=== PATIENT | female | born 1930 | race Hispanic/Latino ===

== ENCOUNTER 2017-01-03 18:35 | Emergency (ER) | payer MEDICARE, BC ==
[2016-08-03 12:17] VITALS: BMI 22.6
--- NOTE | 2017-01-04 11:15 | RAD ---
PROCEDURE: Left Hand Radiographs. HISTORY: Trauma COMPARISON: None. FINDINGS: BONES: There is diffuse bone demineralization. There is no acute displaced fracture or bone destruction in the hand. There is an acute nondisplaced fracture in the styloid process of the radius. JOINTS: There is moderate degenerative osteoarthrosis in the third and 4th PIP joints. There is mild degenerative osteoarthrosis in the 1st PENITENTIARY joint. SOFT TISSUES: Normal. OTHER FINDINGS: None. IMPRESSION: Acute nondisplaced fracture in the styloid process of the radius. No dislocation. We
--- NOTE | 2017-01-04 11:34 | RAD ---
PROCEDURE: Left Wrist Radiographs. HISTORY: Trauma COMPARISON: None. FINDINGS: BONES: There is an acute nondisplaced intra-articular fracture in the distal radius. There is diffuse bone demineralization. Bone alignment is normal. JOINTS: The proximal and distal carpal rows are maintained. SOFT TISSUES: There is soft tissue swelling at the wrist joint. OTHER FINDINGS: None. IMPRESSION: Acute nondisplaced intra-articular fracture in the distal radius and mild soft tissue swelling at the wrist joint. No dislocation.
== END 2017-01-04 00:41 | disposition home or self-care (01) ==
LOC: C.ER 18:35
DX: S52.572A Other intraarticular fracture of lower end of left radius, initial encounter for closed fracture (principal); X58.XXXA Exposure to other specified factors, initial encounter

== ENCOUNTER 2017-06-04 00:27 | Inpatient (IN) | payer MEDICARE, BC ==
[2017-06-04 00:27] VITALS: BMI 22.6
--- NOTE | 2017-06-04 00:35 | C.PDOC ---
History Of Present Illness Patient is an 87 y/o female, with a Hx of dementia, who presents to the ED by ambulance from the retirement complaining of aggressive behavior. care home reported patient was screaming, yelling, punching, and throwing undergarments to staff. No physical complaints at this time. Time Seen by Provider: 06/04/17 00:34 History Per: Other (retirement) Onset/Duration Of Symptoms: Hrs (behavior began tonight) Current Symptoms Are (Timing): Still Present Recent travel outside of the [place]: No Past Medical History Reviewed: Historical Data, Nursing Documentation, Vital Signs - Medical History PMH: Anemia, Anxiety, Arthritis (back and neck), Atrial Fibrillation, Colonic Polyps, Dementia, Diverticulitis, Gastritis, Gastrointestinal Ulcer, HTN, Hypercholesterolemia, Malignancy (tyroid/lung), Rheumatoid Arthritis Denies: Diabetes, Hepatitis, HIV, Chronic Kidney Disease, Seizures, Sexually Transmitted Disease Surgical History: Cholecystectomy, Endoscopy, Pacemaker - [facility] Procedures APPLICATION OF SPLINT (01/31/14) GROUP PSYCHOTHERAPY (03/07/16) INDIVIDUAL PSYCHOTHERAPY, COGNITIVE-BEHAVIORAL (03/07/16) Family History: States: No Known Family Hx - Social History Hx Tobacco Use: No Hx Alcohol Use: No Hx Substance Use: No - Immunization History Hx Tetanus Toxoid Vaccination: Yes Hx Influenza Vaccination: Yes Hx Pneumococcal Vaccination: Yes Review Of Systems Review Of Systems: ROS cannot be obtained secondary to pt's inabilty to answer questions. Physical Exam - Physical Exam Appears: Combative, Agitated, Confused Skin: Warm Head: Normacephalic Oral Mucosa: Moist (pt spitting) Chest: Symmetrical, Other (pacer right) Cardiovascular: Rhythm Regular, No Murmur Respiratory: Normal Breath Sounds, No Rales, No Rhonchi, No Wheezing Extremity: Normal ROM Extremity: Bilateral: Atraumatic Neurological/Psych: Other ([id number]) Gait: Unable To Assess Additional Physical Exam Comments: limited exam due to patient's continuous movement of extremities. ED Course And Treatment - Laboratory Results Result Diagrams: 06/04/17 01:44 06/04/17 01:44 ECG: Interpreted By Me, Viewed By Me ECG Rhythm: Sinus Rhythm (88), 1st Degree HB, Nonspecific Changes Pulse Ox Interpretation: Normal - Radiology CXR: Interpreted by Me, Viewed By Me CXR Interpretation: Yes: Cardiomegaly, Other (pacer on right). No: Infiltrates , Fracture Medical Decision Making Medical Decision Making: Plan: * EKG * CXR * blood work * UA Disposition Discussed With Dr.: Jesus Thurston Comment: accepted the pt on his service and took over the care at 3 AM Doctor Will See Patient In The: Hospital Counseled Patient/Family Regarding: Studies Performed, Diagnosis - Disposition Disposition: HOSPITALIZED Disposition Time: 00:35 Condition: FAIR - POA Present On Arrival: None - Clinical Impression Clinical Impression: Dementia, Agitation - Scribe Statement The provider has reviewed the documentation as recorded by the Scribe Melissa Medrano All medical record entries made by the Scribe were at my direction and personally dictated by me. I have reviewed the chart and agree that the record accurately reflects my personal performance of the history, physical exam, medical decision making, and the department course for this patient. I have also personally directed, reviewed, and agree with the discharge instructions and disposition. Decision To Admit - Pt Status Changed To: Hospital Disposition Of: Inpatient - Admit Certification Admit to Inpatient:: After my assessment, the patient will require hospitalization for at least two midnights. This is because of the severity of symptoms shown, intensity of services needed, and/or the medical risk in this patient being treated as an outpatient. - InPatient: Physician Admission Certification:: After my assessment, the patient will require hospitalization for at least two midnights. This is because of the severity of symptoms shown, intensity of services needed, and/or the medical risk in this patient being treated as an outpatient. - . Bed Request Type: Regular Admitting Physician: Jesus Thurston Patient Diagnosis: Dementia, Agitation
[2017-06-04 01:51] LABS: BASO % 0.2 % (0.0-2.0); EOS % 0.5 % (0.0-4.0); HEMATOCRIT 36.7 % (34.0-47.0); LYMPH # 2.1 K/uL (1.0-4.3); LYMPH % 24.8 % (20.0-40.0); MEAN CORPUSCULAR HEMOGLOBIN 30.5 pg (27.0-31.0); MEAN CORPUSCULAR HGB CONC 32.1 g/dL (33.0-37.0); MEAN PLATELET VOLUME 6.6 fL (7.2-11.7); MONO # 0.8 K/uL (0.0-0.8); MONO % 9.1 % (0.0-10.0); WHITE BLOOD COUNT 8.5 K/uL (4.8-10.8)
[2017-06-04 02:02] LABS: ALKALINE PHOSPHATASE 103 U/L (38-126); ALT/SGPT 32 U/L (9-52); AST/SGOT 16 U/L (14-36); BILIRUBIN,TOTAL 0.6 mg/dL (0.2-1.3); BLOOD UREA NITROGEN 20 mg/dL (7-17); CALCIUM 7.8 mg/dl (8.6-10.4); CARBON DIOXIDE 25 mmol/L (22-30); CHLORIDE 103 mmol/L (98-107); GFR AFRICAN-AMERICAN > 60; GLUCOSE,RANDOM 75 mg/dL (65-105); MAGNESIUM 1.9 mg/dL (1.6-2.3); POTASSIUM 4.2 mmol/L (3.6-5.2); SODIUM 141 mmol/L (132-148); TOTAL PROTEIN 7.3 g/dL (6.3-8.3)
[2017-06-04 02:11] LABS: URINE BILIRUBIN NEGATIVE (NEGATIVE); URINE BLOOD NEGATIVE (NEGATIVE); URINE COLOR Yellow (YELLOW); URINE GLUCOSE (UA) NORMAL (Normal); URINE KETONE NEGATIVE (NEGATIVE); URINE LEUKOCYTE ESTERASE NEG Leu/uL (Negative); URINE PROTEIN NEGATIVE (NEGATIVE); URINE UROBILINOGEN NORMAL mg/dL (0.2-1.0); WBC URINE < 1 /hpf (0-5)
[2017-06-04 02:16] LABS: VENOUS BLOOD GAS BASE EXCESS 2.8 mmol/L (0.0-2.0); VENOUS BLOOD GAS PCO2 47 mmHg (40-60); VENOUS BLOOD PH 7.39 (7.32-7.43)
--- NOTE | 2017-06-04 08:23 | RAD ---
PROCEDURE: CHEST RADIOGRAPH, 1 VIEW HISTORY: SOB COMPARISON: 02/19/2016 FINDINGS: LUNGS: Mild central pulmonary venous congestion and similar-appearing PLEURA: No pneumothorax or pleural fluid seen. CARDIOVASCULAR: Mild [id number] heavy atherosclerotic arterial calcification aortic knob -multiple calcificationshere grossly similar. Two lead pacemaker in place similar OSSEOUS STRUCTURES: No significant abnormalities. VISUALIZED UPPER ABDOMEN: Post cholecystectomy clips present OTHER FINDINGS: None. IMPRESSION: Mild chronic pulmonary venous congestion, and mild cardiomegaly both similar-appearing. No interval cardiopulmonary pathology noted
[2017-06-04] MEDS: Lactobacillus Acidophilus 500 MU Cap PO SCH (09:30)
[2017-06-04] MEDS: Magnesium Hydroxide Susp 30 ml UD PO SCH (09:31)
[2017-06-04] MEDS ORDERED: Pantoprazole 40 mg EC Tab PO SCH (10:00)
[2017-06-04] MEDS: POLYETHYLENE GLYCOL 3350 17 GM/Dose PACKET PO SCH (11:49)
[2017-06-04] MEDS: Enoxaparin 40 mg Syringe SC SCH (11:49)
--- NOTE | 2017-06-04 13:44 | PCM.PSYCH ---
Initial Psychiatric Evaluation - Initial Psychiatric Evaluation Chief Complaint (in patient's own words): "I have pain" History of Present Illness and Precipitating Events: The pt is seen, chart reviewed and case discussed Her son translated and also provided most of the history as the pt is a poor historian and speaks mostly [place]. She is an 87 y/o WF, with 2 children, living in a NH by [facility] x1 year. Her son reports that this NH has a minimum-psych med policy and they stopped her xanax which was around 3 mg/day (down from 6 mg!!) and lately she had gotten aggressive and confused. They even called the police. She had a similar episode last year and was hospitalized at [facility] and her NH then refused to take her back. She likes this NH but has had some issues on and off She voiced some SI then but now she denies. Her son claims she says things without meaning ay of them, but she could be aggressive and lately she has been depressed She has dementia likely Currently she is not as confused (knows her son and hospital) Past psych hx: None, except for more recent years seen by a psychiatrist and got xanax for nxiety Family psych hx: Denied Medical hx: HTN Current Medications: Active Medications Generic Name Dose Route Start Last Admin Trade Name Freq PRN Reason Stop Dose Admin Acetaminophen 650 mg 06/04/17 03:02 Tylenol 325mg Tab PO Q4H PRN Temp >100 Ascorbic Acid 1,000 mg 06/04/17 10:00 06/04/17 09:31 Vitamin C 500 Mg Tab PO 1,000 mg DAILY SCOT Administration Carvedilol 12.5 mg 06/04/17 10:00 06/04/17 09:32 Coreg PO 12.5 mg BID SCOT Administration Donepezil HCl 10 mg 06/04/17 22:00 Aricept PO HS SCOT Enoxaparin Sodium 40 mg 06/04/17 10:00 06/04/17 11:49 Lovenox SC 40 mg DAILY SCOT Administration Gabapentin 100 mg 06/04/17 10:00 06/04/17 09:31 Neurontin PO 100 mg TID SCOT Administration Lactobacillus Acidophilus 1 cap 06/04/17 10:00 06/04/17 09:30 Bacid Acidophilus PO 1 cap DAILY SCOT Administration Lorazepam 1 mg 06/04/17 03:07 Ativan IM Q4H PRN Agitation Losartan Potassium 50 mg 06/04/17 10:00 06/04/17 09:31 Cozaar PO 50 mg DAILY SCOT Administration Magnesium Hydroxide 30 ml 06/04/17 10:00 06/04/17 09:31 Milk Of Magnesia PO 30 ml DAILY SCOT Administration Pantoprazole Sodium 20 mg 06/04/17 10:00 06/04/17 09:31 Protonix Ec Tab PO 20 mg DAILY SCOT Administration Phenazopyridine HCl 200 mg 06/04/17 03:02 Pyridium PO DAILY PRN Bladder Spasm Polyethylene Glycol 17 gm 06/04/17 10:00 06/04/17 11:49 Miralax PO 17 gm DAILY SCOT Administration Rosuvastatin Calcium 5 mg 06/04/17 22:00 Crestor PO HS SCOT Past Psychiatric History - Past Psychiatric History Previous Treatment History: None Pertinent Medical Hx (Current Medical&Sleep Prob, Allergies): Allergies Allergy/AdvReac Type Severity Reaction Status Date / Time No Known Allergies Allergy Verified 08/03/16 12:15 Acetaminophen [Tylenol 325mg tab] 650 mg PO Q4H PRN 03/07/16 Ascorbic Acid [Vitamin C 500 mg Tab] 1,000 mg PO DAILY #0 tab 03/20/16 Atorvastatin [Lipitor] 10 mg PO HS #0 tab 03/20/16 Donepezil [Aricept] 10 mg PO HS #0 tab 03/20/16 LORazepam [Ativan] 1 mg PO BID #0 tab 03/20/16 Phenazopyridine [Pyridium] 200 mg PO DAILY #0 tab 03/20/16 Polyethylene Glycol 3350 [Miralax] 17 gm PO DAILY #0 powd.pack 03/20/16 Valsartan [Diovan] 80 mg PO DAILY #0 tab 03/20/16 Gabapentin [Neurontin] 100 mg PO TID 08/03/16 Lactobacillus Acidophilus [Acidophilus] 1 cap PO DAILY 08/03/16 Magnesium Hydroxide [Milk Of Magnesia] 30 ml PO DAILY 08/03/16 Carvedilol [Coreg] 12.5 mg PO BID 06/04/17 Pantoprazole [Protonix EC Tab] 20 mg PO DAILY 06/04/17 Review of Systems - Neurological Neurological: Confusion, Memory Loss - Psychiatric Psychiatric: Abnormal Sleep Pattern, Anxiety, Confusion, Depression, Difficulty Concentrating, Irritability. absent: Hallucinations, Homicidal Ideation, Suicidal Ideation Mental Status Examination - Personal Presentation Personal Presentation: Looks stated age - Affect Affect: Constricted - Motor Activity Motor Activity: Calm - Reliability in Providing Information Reliability in Providing Information: Poor, due to cognitve impairment - Mood Mood: Depressed, Anxious - Formal Thought Process Formal Thought Process: Loosening of associations, Perservation - Cognitive Functions Orientation: Person Sensorium: Alert Attention/Concentration: Easily distracted Abstract Thinking: [place] Estimate of Intelligence: Average Memory: Recent impaired, as evidence by: Inability to recall events of the day, Remote impaired as evidenced by: Inability to recall sig life events - Risk Risk: Diminished functioning - Strength & Assets Inventory Strength & Assets Inventory: Family support, Cooperative - Limitations Limitations: Living alone DSM 5 DX - DSM 5 DSM 5 Diagnosis: Delirium Depression - unspecified r/o dementia - Recommended/Plan of Treatment Treatment Recommendations and Plan of Treatment: Remeron low dose for sleep and depressive sx prn Ativan and haldol for agitaion and anxiety 1:1 one more day Frequent support and orientation 32 min
--- NOTE | 2017-06-04 15:26 | CP.PCM.CON ---
History of Present Illness - History of Present Illness History of Present Illness: Patient with history of PPM who was transferred form [place] after she had some Psychiatric issues. History from her son, Past Patient History - Infectious Disease Hx of Infectious Diseases: None - Past Medical History & Family History Past Medical History?: Yes - Past Social History Smoking Status: Never Smoked - CARDIAC Hx Cardiac Disorders: Yes Hx Atrial Fibrillation: Yes Hx Hypercholesterolemia: Yes Hx Hypertension: Yes Hx Pacemaker: Yes - PULMONARY Hx Respiratory Disorders: No Hx Tuberculosis: No - NEUROLOGICAL Hx Neurological Disorder: Yes Hx Dementia: Yes Hx Seizures: No - HEENT Hx HEENT Problems: Yes Hx Cataracts: Yes - RENAL Hx Chronic Kidney Disease: No - ENDOCRINE/METABOLIC Hx Endocrine Disorders: No - HEMATOLOGICAL/ONCOLOGICAL Hx Blood Disorders: Yes Hx Anemia: No Hx Human Immunodeficiency Virus (HIV): No - INTEGUMENTARY Hx Dermatological Problems: No - MUSCULOSKELETAL/RHEUMATOLOGICAL Hx Musculoskeletal Disorders: Yes Hx Arthritis: Yes (back and neck) Hx Falls: Yes Hx Rheumatoid Arthritis: Yes Hx Unsteady Gait: Yes Other/Comment: walker - GASTROINTESTINAL Hx Gastrointestinal Disorders: Yes Hx Diverticulitis: Yes Hx Gastritis: Yes - GENITOURINARY/GYNECOLOGICAL Hx Sexually Transmitted Disorders: No - PSYCHIATRIC Hx Psychophysiologic Disorder: Yes Hx Anxiety: Yes Hx Substance Use: No - SURGICAL HISTORY Hx Surgeries: Yes Hx Cholecystectomy: Yes - ANESTHESIA Hx Anesthesia: Yes Hx Anesthesia Reactions: Yes (NAUSEA/ VOMITTING DIZZNESS) Meds Allergies/Adverse Reactions: Allergies Allergy/AdvReac Type Severity Reaction Status Date / Time No Known Allergies Allergy Verified 08/03/16 12:15 - Medications Medications: Current Medications Acetaminophen (Tylenol 325mg Tab) 650 mg PO Q4H PRN PRN Reason: Temp >100 Ascorbic Acid (Vitamin C 500 Mg Tab) 1,000 mg PO DAILY [facility] Last Admin: 06/04/17 09:31 Dose: 1,000 mg Carvedilol (Coreg) 12.5 mg PO BID [facility] Last Admin: 06/04/17 09:32 Dose: 12.5 mg Donepezil HCl (Aricept) 10 mg PO HS [facility] Enoxaparin Sodium (Lovenox) 40 mg SC DAILY [facility] Last Admin: 06/04/17 11:49 Dose: 40 mg Gabapentin (Neurontin) 100 mg PO TID [facility] Last Admin: 06/04/17 14:39 Dose: 100 mg Haloperidol (Haldol) 1 mg PO Q6H PRN PRN Reason: severe agitation Lactobacillus Acidophilus (Bacid Acidophilus) 1 cap PO DAILY [facility] Last Admin: 06/04/17 09:30 Dose: 1 cap Lorazepam (Ativan) 0.5 mg PO Q6H PRN PRN Reason: agitation, anxiety Losartan Potassium (Cozaar) 50 mg PO DAILY [facility] Last Admin: 06/04/17 09:31 Dose: 50 mg Magnesium Hydroxide (Milk Of Magnesia) 30 ml PO DAILY [facility] Last Admin: 06/04/17 09:31 Dose: 30 ml Mirtazapine (Remeron) 7.5 mg PO HS [facility] Pantoprazole Sodium (Protonix Ec Tab) 20 mg PO DAILY [facility] Phenazopyridine HCl (Pyridium) 200 mg PO DAILY PRN PRN Reason: Bladder Spasm Polyethylene Glycol (Miralax) 17 gm PO DAILY [facility] Last Admin: 06/04/17 11:49 Dose: 17 gm Rosuvastatin Calcium (Crestor) 5 mg PO [facility] Physical Exam - Head Exam Head Exam: NORMOCEPHALIC - Neck Exam Neck exam: Positive for: Normal Inspection - Respiratory Exam Respiratory Exam: NORMAL BREATHING PATTERN - Cardiovascular Exam Cardiovascular Exam: REGULAR RHYTHM - Extremities Exam Extremities exam: Positive for: normal inspection - Neurological Exam Neurological exam: Alert Results - Vital Signs Recent Vital Signs: Last Vital Signs Temp 97.4 F L 06/04/17 13:15 Pulse 60 06/04/17 13:15 Resp 18 06/04/17 13:15 BP 156/77 H 06/04/17 13:15 Pulse Ox 97 06/04/17 12:05 - Labs Result Diagrams: 06/04/17 01:44 06/04/17 01:44 Labs: Laboratory Results - last 24 hr 06/04/17 06/04/17 06/04/17 01:44 01:44 02:05 WBC 8.5 RBC 3.86 Hgb 11.8 Hct 36.7 MCV 95.0 D MCH 30.5 MCHC 32.1 L RDW 13.0 Plt Count 292 MPV 6.6 L Neut % (Auto) 65.4 Lymph % (Auto) 24.8 [place] % (Auto) 9.1 Eos % (Auto) 0.5 Baso % (Auto) 0.2 Neut # 5.6 Lymph # 2.1 [place] # 0.8 Eos # 0.0 Baso # 0.0 pO2 56 H VBG pH 7.39 VBG pCO2 47 VBG HCO3 26.9 VBG Total CO2 29.9 H VBG O2 Sat (Calc) 89.8 H VBG Base Excess 2.8 H VBG Potassium 3.8 Glucose 99 Lactate 1.5 Sodium 141 142.0 Potassium 4.2 Chloride 103 111.0 H Carbon Dioxide 25 Anion Gap 17 BUN 20 H Creatinine 0.7 Est GFR ( Amer) > 60 Est GFR (Non-Af Amer) > 60 Random Glucose 75 Calcium 7.8 L Magnesium 1.9 Total Bilirubin 0.6 AST 16 ALT 32 Alkaline Phosphatase 103 Total Protein 7.3 Albumin 3.7 Globulin 3.5 Albumin/Globulin Ratio 1.0 Venous Blood Potassium 3.8 Urine Color Urine Clarity Urine pH Ur Specific [place] Urine Protein Urine Glucose (UA) Urine Ketones Urine Blood Urine Nitrate Urine Bilirubin Urine Urobilinogen Ur Leukocyte Esterase Urine WBC (Auto) 06/04/17 02:06 WBC RBC Hgb Hct MCV MCH MCHC RDW Plt Count MPV Neut % (Auto) Lymph % (Auto) [place] % (Auto) Eos % (Auto) Baso % (Auto) Neut # Lymph # [place] # Eos # Baso # pO2 VBG pH VBG pCO2 VBG HCO3 VBG Total CO2 VBG O2 Sat (Calc) VBG Base Excess VBG Potassium Glucose Lactate Sodium Potassium Chloride Carbon Dioxide Anion Gap BUN Creatinine Est GFR ( Amer) Est GFR (Non-Af Amer) Random Glucose Calcium Magnesium Total Bilirubin AST ALT Alkaline Phosphatase Total Protein Albumin Globulin Albumin/Globulin Ratio Venous Blood Potassium Urine Color Yellow Urine Clarity Clear Urine pH 6.0 Ur Specific [place] 1.005 Urine Protein Negative Urine Glucose (UA) Normal Urine Ketones Negative Urine Blood Negative Urine Nitrate Negative Urine Bilirubin Negative Urine Urobilinogen Normal Ur Leukocyte Esterase Neg Urine WBC (Auto) < 1 Assessment & Plan (1) SSS (sick sinus syndrome) Assessment and Plan: Patient with PPM as per her son, last interrogation more than a year. per her son Dr. Don has her record. will discuss with dr. Don if he wants to take over care of this patient. At this time there is no cardiac issues. Continue current cardiac care. Status: Acute
[2017-06-04 16:25] VITALS: RESP 20
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
[2017-06-05] MEDS: Lactobacillus Acidophilus 500 MU Cap PO SCH (10:07)
[2017-06-05] MEDS: Magnesium Hydroxide Susp 30 ml UD PO SCH ×2 (10:07→10:14)
[2017-06-05] MEDS: Pantoprazole 20 mg EC Tab PO SCH (10:07)
[2017-06-05] MEDS: POLYETHYLENE GLYCOL 3350 17 GM/Dose PACKET PO SCH (10:08)
[2017-06-05] MEDS: Enoxaparin 40 mg Syringe SC SCH (10:08)
--- NOTE | 2017-06-05 12:55 | CP.PCM.PCO ---
Physician Communication Note - Physician Communication Note Physician Communication Note: PT MEDICALLY CLEARED FOR TRANSFER TO [facility]
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
--- NOTE | 2017-06-05 16:00 | CT ---
PROCEDURE: CT HEAD WITHOUT CONTRAST. HISTORY: headache/ AMS COMPARISON: Noncontrast head CT performed 08/03/16 TECHNIQUE: Axial computed tomography images were obtained through the head/brain without intravenous contrast. Radiation dose: Total exam DLP = 1237.68 mGy-cm. This CT exam was performed using one or more of the following dose reduction techniques: Automated exposure control, adjustment of the mA and/or kV according to patient size, and/or use of iterative reconstruction technique. FINDINGS: HEMORRHAGE: No intracranial hemorrhage. BRAIN: Diffuse atrophy with prominence of the ventricles and sulci noted. No mass effect or edema. Intracranial atherosclerosis. Scattered periventricular and subcortical white matter hypodensities, which are nonspecific, but often seen with chronic microvascular ischemic disease. Please note that MRI with diffusion imaging is more sensitive in the detection of acute ischemic event. VENTRICLES: No hydrocephalus. CALVARIUM: Unremarkable. PARANASAL SINUSES: Unremarkable as visualized. No significant inflammatory changes. MASTOID AIR CELLS: Unremarkable as visualized. No inflammatory changes. OTHER FINDINGS: None. IMPRESSION: Generalized atrophy. Nonspecific white matter changes.
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
--- NOTE | 2017-06-05 19:57 | CP.PCM.PN ---
Subjective - Date & Time of Evaluation Date of Evaluation: 06/05/17 Time of Evaluation: 14:00 - Subjective Subjective: No new issues. Objective - Vital Signs/Intake and Output Vital Signs (last 24 hours): Temp Pulse Resp BP Pulse Ox 97.8 F 77 20 147/63 95 06/04/17 23:40 06/04/17 23:40 06/04/17 23:40 06/05/17 10:08 06/04/17 23:40 - Medications Medications: Current Medications Acetaminophen (Tylenol 325mg Tab) 650 mg PO Q4H PRN PRN Reason: Temp >100 Last Admin: 06/05/17 10:38 Dose: 650 mg Ascorbic Acid (Vitamin C 500 Mg Tab) 1,000 mg PO DAILY [facility] Last Admin: 06/05/17 10:07 Dose: 1,000 mg Carvedilol (Coreg) 12.5 mg PO BID [facility] Last Admin: 06/05/17 10:08 Dose: 12.5 mg Donepezil HCl (Aricept) 10 mg PO HS [facility] Last Admin: 06/04/17 21:30 Dose: 10 mg Enoxaparin Sodium (Lovenox) 40 mg SC DAILY [facility] Last Admin: 06/05/17 10:08 Dose: 40 mg Gabapentin (Neurontin) 100 mg PO TID [facility] Last Admin: 06/05/17 10:07 Dose: 100 mg Lactobacillus Acidophilus (Bacid Acidophilus) 1 cap PO DAILY [facility] Last Admin: 06/05/17 10:07 Dose: 1 cap Lorazepam (Ativan) 1 mg IM Q4H PRN PRN Reason: Anxiety Last Admin: 06/05/17 18:35 Dose: 1 mg Losartan Potassium (Cozaar) 50 mg PO DAILY [facility] Last Admin: 06/05/17 10:07 Dose: 50 mg Magnesium Hydroxide (Milk Of Magnesia) 30 ml PO DAILY [facility] Last Admin: 06/05/17 10:14 Dose: Not Given Pantoprazole Sodium (Protonix Ec Tab) 20 mg PO DAILY [facility] Last Admin: 06/05/17 10:07 Dose: 20 mg Phenazopyridine HCl (Pyridium) 200 mg PO DAILY PRN PRN Reason: Bladder Spasm Polyethylene Glycol (Miralax) 17 gm PO DAILY [facility] Last Admin: 06/05/17 10:08 Dose: 17 gm Rosuvastatin Calcium (Crestor) 5 mg PO HS [facility] Last Admin: 06/04/17 21:29 Dose: 5 mg - Labs Labs: 06/04/17 01:44 06/04/17 01:44 - Neck Exam Neck Exam: Normal Inspection - Respiratory Exam Respiratory Exam: NORMAL BREATHING PATTERN - Cardiovascular Exam Cardiovascular Exam: REGULAR RHYTHM Assessment and Plan (1) SSS (sick sinus syndrome) Assessment & Plan: Discussed with primary cage tender. She has [facility], last interrogation unknown as per son. Will check make arrangement for interrogation. Status: Acute
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
[2017-06-06 08:01] LABS: BASO % 0.1 % (0.0-2.0); EOS # 0.1 K/uL (0.0-0.7); EOS % 0.9 % (0.0-4.0); HEMATOCRIT 36.3 % (34.0-47.0); LYMPH # 1.4 K/uL (1.0-4.3); LYMPH % 18.7 % (20.0-40.0); MEAN CELL VOLUME 94.9 fL (81.0-99.0); MEAN CORPUSCULAR HEMOGLOBIN 31.1 pg (27.0-31.0); MEAN CORPUSCULAR HGB CONC 32.8 g/dL (33.0-37.0); MEAN PLATELET VOLUME 6.8 fL (7.2-11.7); MONO # 0.6 K/uL (0.0-0.8); MONO % 8.4 % (0.0-10.0); RED CELL DISTRIBUTION WIDTH 13.4 % (11.5-14.5); WHITE BLOOD COUNT 7.7 K/uL (4.8-10.8)
[2017-06-06 08:27] LABS: ALB/GLOB RATIO 1.3 (1.0-2.1); ALKALINE PHOSPHATASE 109 U/L (38-126); ALT/SGPT 33 U/L (9-52); AST/SGOT 33 U/L (14-36); BILIRUBIN,TOTAL 0.9 mg/dL (0.2-1.3); BLOOD UREA NITROGEN 21 mg/dL (7-17); CALCIUM 8.4 mg/dl (8.6-10.4); CARBON DIOXIDE 30 mmol/L (22-30); CHLORIDE 107 mmol/L (98-107); GFR AFRICAN-AMERICAN > 60; GLUCOSE,RANDOM 96 mg/dL (65-105); SODIUM 142 mmol/L (132-148); TOTAL PROTEIN 6.5 g/dL (6.3-8.3)
[2017-06-06] MEDS: Enoxaparin 40 mg Syringe SC SCH (10:32)
[2017-06-06] MEDS: POLYETHYLENE GLYCOL 3350 17 GM/Dose PACKET PO SCH (10:33)
[2017-06-06] MEDS: Magnesium Hydroxide Susp 30 ml UD PO SCH (10:33)
[2017-06-06] MEDS: Lactobacillus Acidophilus 500 MU Cap PO SCH (10:34)
[2017-06-06] MEDS: Pantoprazole 20 mg EC Tab PO SCH (10:34)
--- NOTE | 2017-06-06 10:45 | CARD ---
APPROVED REPORT EKG Measurement Heart [id number] <Conclusion> Dual chamber pacemaker with intermittent atrial paced rhythm with prolonged AV conduction Premature atrial complexes Left axis deviation Left ventricular hypertrophy with QRS widening and repolarization abnormality Inferior infarct, age undetermined Abnormal ECG
--- NOTE | 2017-06-06 14:06 | PN ---
DATE: 06/06/2017 FOLLOWUP PROGRESS NOTE SUBJECTIVE: The patient is seen. The patient currently is in a private room with one-to-one watch. According to the nurse, the patient's behavior is slightly better this morning, but she still has episodes of severe agitation. She destroyed her bed and almost was throwing things. The patient is still not medically clear. Her son wants her to get epidural shot for control of her chronic back pain and arrangements have been made before transfer to the Geropsych Unit at [facility]. The patient when seen today is more manageable. She said she wants to go for the epidural shot. She has periods of confusion. PHYSICAL EXAMINATION: VITAL SIGNS: Temperature is 97.5, pulse rate is 63, respiration is 20, blood pressure is 119/65, oxygen sat is 95%. REVIEW OF SYSTEMS: GENERAL: The patient is seen resting in her room, much calmer today, but behavior is still very erratic with one-to-one watch for monitoring. SKIN: No diaphoresis. HEENT: No headache or dizziness. NECK: Supple. RESPIRATORY: No dyspnea. CARDIOVASCULAR: No chest pain. GASTROINTESTINAL: No nausea. No vomiting. She is eating fairly. EXTREMITIES: The patient move extremities. MUSCULOSKELETAL: Feels week. NEUROLOGIC: Alert, but still with periods of confusion. GENITOURINARY: No dysuria. MENTAL STATUS EXAMINATION: Elderly female, looks stated age, seen in her room, oriented to person and place. Mood is much calmer. Affect is reactive. Speech is spontaneous. Thought process is confused off and on. Thought content, the patient states she wants to go home. No overt paranoia. No hallucination. Attention and memory seemed to be limited. No suicidal or homicidal ideation. Impulse control is guarded. IMPRESSION: History of delirium, metabolic encephalopathy, dementia with behavioral problems. The patient has history of frontotemporal dementia as well as history of irritable bowel syndrome, sick sinus syndrome. PLAN AND RECOMMENDATIONS: The patient was seen. Meds reviewed. We will keep the patient on one-to-one watch for closer monitoring. The patient is awaiting medical clearance to go to [facility]. Psych cordova, we will keep the patient on Ativan p.r.n. for now as well as her Aricept and the Neurontin. The patient is for epidural shot for control of her chronic back pain. aGto Sauceda, NASRAD: 06/06/2017 11:22:07 [facility] # [id number]
[2017-06-07 01:03] VITALS: O2SAT 95
--- NOTE | 2017-06-07 06:20 | CP.PCM.PN ---
Subjective - Date & Time of Evaluation Date of Evaluation: 06/06/17 Time of Evaluation: 19:55 - Subjective Subjective: Pt seen and evaluated at bedside, remains confused, agitated, restless, CT head is negative Objective - Vital Signs/Intake and Output Vital Signs (last 24 hours): Temp Pulse Resp BP Pulse Ox 97.4 F L 63 20 136/63 95 06/07/17 01:00 06/07/17 01:00 06/07/17 01:00 06/07/17 01:00 06/07/17 01:00 - Medications Medications: Current Medications Acetaminophen (Tylenol 325mg Tab) 650 mg PO Q4H PRN PRN Reason: Temp >100 Last Admin: 06/06/17 19:00 Dose: 650 mg Ascorbic Acid (Vitamin C 500 Mg Tab) 1,000 mg PO DAILY [facility] Last Admin: 06/06/17 10:33 Dose: 1,000 mg Carvedilol (Coreg) 12.5 mg PO BID [facility] Last Admin: 06/06/17 17:39 Dose: Not Given Donepezil HCl (Aricept) 10 mg PO HS [facility] Last Admin: 06/06/17 22:44 Dose: 10 mg Enoxaparin Sodium (Lovenox) 40 mg SC DAILY [facility] Last Admin: 06/06/17 10:32 Dose: 40 mg Gabapentin (Neurontin) 100 mg PO TID [facility] Last Admin: 06/06/17 17:38 Dose: 100 mg Lactobacillus Acidophilus (Bacid Acidophilus) 1 cap PO DAILY [facility] Last Admin: 06/06/17 10:34 Dose: 1 cap Lorazepam (Ativan) 1 mg IM Q4H PRN PRN Reason: Anxiety Last Admin: 06/06/17 17:37 Dose: 1 mg Losartan Potassium (Cozaar) 50 mg PO DAILY [facility] Last Admin: 06/06/17 10:33 Dose: 50 mg Magnesium Hydroxide (Milk Of Magnesia) 30 ml PO DAILY [facility] Last Admin: 06/06/17 10:33 Dose: 30 ml Pantoprazole Sodium (Protonix Ec Tab) 20 mg PO DAILY [facility] Last Admin: 06/06/17 10:34 Dose: 20 mg Phenazopyridine HCl (Pyridium) 200 mg PO DAILY PRN PRN Reason: Bladder Spasm Polyethylene Glycol (Miralax) 17 gm PO DAILY [facility] Last Admin: 06/06/17 10:33 Dose: 17 gm Rosuvastatin Calcium (Crestor) 5 mg PO HS [facility] Last Admin: 06/06/17 22:44 Dose: 5 mg - Labs Labs: 06/06/17 07:50 06/06/17 07:50 - Constitutional Appears: No Acute Distress - Head Exam Head Exam: ATRAUMATIC, NORMAL INSPECTION, NORMOCEPHALIC - Eye Exam Eye Exam: EOMI, Normal appearance, PERRL Pupil Exam: NORMAL ACCOMODATION, PERRL - ENT Exam ENT Exam: Mucous Membranes Moist, Normal Exam - Respiratory Exam Respiratory Exam: Clear to Ausculation Bilateral, NORMAL BREATHING PATTERN - Cardiovascular Exam Cardiovascular Exam: REGULAR RHYTHM, +S1, +S2. absent: Murmur - GI/Abdominal Exam GI & Abdominal Exam: Soft, Normal Bowel Sounds. absent: Tenderness - Rectal Exam Rectal Exam: NORMAL INSPECTION - Neurological Exam Neurological Exam: Alert Additional comments: confused - Psychiatric Exam Psychiatric exam: Agitated, Anxious, Depressed Assessment and Plan (1) Altered mental state Status: Acute (2) Agitation Status: Acute (3) Dementia Status: Acute (4) Aggressive behavior Status: Acute (5) Anxiety Status: Acute
--- NOTE | 2017-06-07 06:20 | CP.PCM.PN ---
Subjective - Date & Time of Evaluation Date of Evaluation: 06/07/17 Time of Evaluation: 10:00 - Subjective Subjective: Pt seen and evaluated at bedside Objective - Vital Signs/Intake and Output Vital Signs (last 24 hours): Temp Pulse Resp BP Pulse Ox 97.4 F L 63 20 136/63 95 06/07/17 01:00 06/07/17 01:00 06/07/17 01:00 06/07/17 01:00 06/07/17 01:00 - Medications Medications: Current Medications Acetaminophen (Tylenol 325mg Tab) 650 mg PO Q4H PRN PRN Reason: Temp >100 Last Admin: 06/06/17 19:00 Dose: 650 mg Ascorbic Acid (Vitamin C 500 Mg Tab) 1,000 mg PO DAILY [facility] Last Admin: 06/06/17 10:33 Dose: 1,000 mg Carvedilol (Coreg) 12.5 mg PO BID [facility] Last Admin: 06/06/17 17:39 Dose: Not Given Donepezil HCl (Aricept) 10 mg PO HS [facility] Last Admin: 06/06/17 22:44 Dose: 10 mg Enoxaparin Sodium (Lovenox) 40 mg SC DAILY [facility] Last Admin: 06/06/17 10:32 Dose: 40 mg Gabapentin (Neurontin) 100 mg PO TID [facility] Last Admin: 06/06/17 17:38 Dose: 100 mg Lactobacillus Acidophilus (Bacid Acidophilus) 1 cap PO DAILY [facility] Last Admin: 06/06/17 10:34 Dose: 1 cap Lorazepam (Ativan) 1 mg IM Q4H PRN PRN Reason: Anxiety Last Admin: 06/06/17 17:37 Dose: 1 mg Losartan Potassium (Cozaar) 50 mg PO DAILY [facility] Last Admin: 06/06/17 10:33 Dose: 50 mg Magnesium Hydroxide (Milk Of Magnesia) 30 ml PO DAILY [facility] Last Admin: 06/06/17 10:33 Dose: 30 ml Pantoprazole Sodium (Protonix Ec Tab) 20 mg PO DAILY [facility] Last Admin: 06/06/17 10:34 Dose: 20 mg Phenazopyridine HCl (Pyridium) 200 mg PO DAILY PRN PRN Reason: Bladder Spasm Polyethylene Glycol (Miralax) 17 gm PO DAILY [facility] Last Admin: 06/06/17 10:33 Dose: 17 gm Rosuvastatin Calcium (Crestor) 5 mg PO HS [facility] Last Admin: 06/06/17 22:44 Dose: 5 mg - Labs Labs: 06/06/17 07:50 06/06/17 07:50 Assessment and Plan (1) Altered mental state Status: Acute (2) Agitation Status: Acute (3) Dementia Status: Acute (4) Aggressive behavior Status: Acute (5) Anxiety Status: Acute
[2017-06-07] MEDS: Enoxaparin 40 mg Syringe SC SCH (09:12)
[2017-06-07] MEDS: Pantoprazole 20 mg EC Tab PO SCH (09:13)
[2017-06-07] MEDS: Lactobacillus Acidophilus 500 MU Cap PO SCH (09:13)
[2017-06-07] MEDS: Magnesium Hydroxide Susp 30 ml UD PO SCH (09:28)
[2017-06-07] MEDS: POLYETHYLENE GLYCOL 3350 17 GM/Dose PACKET PO SCH (09:28)
[2017-06-08 08:52] VITALS: BP 157/78; PULSE 69; TEMP 98
[2017-06-08] MEDS: Pantoprazole 20 mg EC Tab PO SCH (10:40)
[2017-06-08] MEDS: Magnesium Hydroxide Susp 30 ml UD PO SCH (10:41)
[2017-06-08] MEDS: Enoxaparin 40 mg Syringe SC SCH (10:41)
[2017-06-08] MEDS: POLYETHYLENE GLYCOL 3350 17 GM/Dose PACKET PO SCH (10:41)
[2017-06-08] MEDS: Lactobacillus Acidophilus 500 MU Cap PO SCH (10:41)
--- NOTE | 2017-06-08 12:03 | CP.PCM.PN ---
Subjective - Date & Time of Evaluation Date of Evaluation: 06/08/17 Time of Evaluation: 11:20 - Subjective Subjective: patient seen today, awake, alert, demented , much calmer than before , periods of screaming noted, son at bed side No aggressive behavior overnight reported by RN Objective - Vital Signs/Intake and Output Vital Signs (last 24 hours): Temp Pulse Resp BP Pulse Ox 98.0 F 69 20 157/78 H 95 06/08/17 08:51 06/08/17 08:51 06/08/17 08:51 06/08/17 10:41 06/08/17 08:51 - Medications Medications: Current Medications Acetaminophen (Tylenol 325mg Tab) 650 mg PO Q4H PRN PRN Reason: Temp >100 Last Admin: 06/08/17 06:42 Dose: 650 mg Ascorbic Acid (Vitamin C 500 Mg Tab) 1,000 mg PO DAILY [facility] Last Admin: 06/08/17 10:40 Dose: 1,000 mg Carvedilol (Coreg) 12.5 mg PO BID [facility] Last Admin: 06/08/17 10:41 Dose: 12.5 mg Donepezil HCl (Aricept) 10 mg PO HS [facility] Last Admin: 06/07/17 22:45 Dose: 10 mg Enoxaparin Sodium (Lovenox) 40 mg SC DAILY [facility] Last Admin: 06/08/17 10:41 Dose: 40 mg Gabapentin (Neurontin) 100 mg PO TID [facility] Last Admin: 06/08/17 10:40 Dose: 100 mg Lactobacillus Acidophilus (Bacid Acidophilus) 1 cap PO DAILY [facility] Last Admin: 06/08/17 10:41 Dose: 1 cap Lorazepam (Ativan) 1 mg IM Q4H PRN PRN Reason: Anxiety Last Admin: 06/07/17 22:42 Dose: 1 mg Losartan Potassium (Cozaar) 50 mg PO DAILY [facility] Last Admin: 06/07/17 09:14 Dose: 50 mg Magnesium Hydroxide (Milk Of Magnesia) 30 ml PO DAILY [facility] Last Admin: 06/08/17 10:41 Dose: 30 ml Pantoprazole Sodium (Protonix Ec Tab) 20 mg PO DAILY [facility] Last Admin: 06/08/17 10:40 Dose: 20 mg Phenazopyridine HCl (Pyridium) 200 mg PO DAILY PRN PRN Reason: Bladder Spasm Last Admin: 06/08/17 10:40 Dose: 200 mg Polyethylene Glycol (Miralax) 17 gm PO DAILY [facility] Last Admin: 06/08/17 10:41 Dose: 17 gm Rosuvastatin Calcium (Crestor) 5 mg PO HS [facility] Last Admin: 06/07/17 22:45 Dose: 5 mg - Labs Labs: 06/06/17 07:50 06/06/17 07:50 - Constitutional Appears: Well, No Acute Distress, Confused (demented) - Respiratory Exam Respiratory Exam: NORMAL BREATHING PATTERN - Neurological Exam Neurological Exam: Alert, Awake (demented ) Assessment and Plan - Assessment and Plan (Free Text) Assessment: A/P 87 yr old female with hx of dementia , admitted from [place] for aggressive behavior Dr. Batres consulted for aggressive behaviour and recommends to transfer patient to [facility]- psyche Anesthsia consulted fro epidural and recommends out patient f/u patient accepted and son in agreement and signed the paper for the patient d/w with Dr. Herring, medically stable [facility]
--- NOTE | 2017-06-08 15:20 | PN ---
DATE: 06/08/2017 SUBJECTIVE: Patient is still with periods of confusion. Patient is seen with son. Patient has been medically cleared to go to [facility]. Patient complaining of back pain and her son wants patient to be seen by pain management doctor once the patient is transferred to [place]. Psych [facility], she has been compliant with meds, currently on Ativan p.r.n. and Aricept. PHYSICAL EXAMINATION: VITAL SIGNS: Temperature is 98, pulse rate 69, blood pressure 157/78, respirations 20, oxygen sat is 95%. REVIEW OF SYSTEMS: GENERAL: Patient is alert, conversing in Estonian, seen with family, still with periods of confusion, but redirectable. Patient states that she has back pain. SKIN: No diaphoresis. HEENT: No headache, no dizziness. NECK: Supple. RESPIRATORY: No dyspnea. CARDIOVASCULAR: No chest pain. GASTROINTESTINAL: Patient is eating well. EXTREMITIES: Patient ambulatory, but has unsteady gait. MUSCULOSKELETAL: Has chronic back pain. NEUROLOGIC: Alert with periods of confusion. GENITOURINARY: No dysuria. MENTAL STATUS EXAMINATION: Elderly female, looks stated age, speaks limited Turkmen, oriented times to place and person, not to time, seen with son, patient speaking mostly in Estonian and limited Turkmen. Affect is reactive. Mood is calmer. Thought process confused off and on. Thought content, no overt psychosis. No suicidal or homicidal ideation. Her son who is her POA, has agreed for patient to go to [place] for inpatient Geropsych admission to stabilize her meds, then to return to [facility] for long-term care. Has no overt psychosis, no suicidal or homicidal ideation. Attention and memory seems to be limited. Insight and judgment limited. Impulse control is fair at this time. IMPRESSION: History of dementia with behavioral problems as well as history of delirium, metabolic encephalopathy as well as history of frontotemporal dementia. PLAN AND RECOMMENDATIONS: Patient is seen and meds reviewed. The patient is doing better today agitation cordova, but will need inpatient Geropsych admission. Patient has been medically cleared and [facility]. Gato Sauceda MD [facility] # [id number] MTDD
--- NOTE | 2017-06-25 11:22 | CP.PCM.DIS ---
Provider - Provider Date of Admission: 06/04/17 02:58 Attending physician: Jesus Thurston MD Time Spent in preparation of Discharge (in minutes): 16 Diagnosis - Discharge Diagnosis (1) Altered mental state Status: Acute (2) Agitation Status: Acute (3) Dementia Status: Acute (4) Aggressive behavior Status: Acute (5) Anxiety Status: Acute Hospital Course - Lab Results Lab Results: Most Recent Lab Values WBC 7.7 K/uL (4.8-10.8) 06/06/17 07:50 RBC 3.82 Mil/uL (3.80-5.20) 06/06/17 07:50 Hgb 11.9 g/dL (11.0-16.0) 06/06/17 07:50 Hct 36.3 % (34.0-47.0) 06/06/17 07:50 MCV 94.9 fL (81.0-99.0) 06/06/17 07:50 MCH 31.1 pg (27.0-31.0) H 06/06/17 07:50 MCHC 32.8 g/dL (33.0-37.0) L 06/06/17 07:50 RDW 13.4 % (11.5-14.5) 06/06/17 07:50 Plt Count 271 K/uL (130-400) 06/06/17 07:50 MPV 6.8 fL (7.2-11.7) L 06/06/17 07:50 Neut % (Auto) 71.9 % (50.0-75.0) 06/06/17 07:50 Lymph % (Auto) 18.7 % (20.0-40.0) L 06/06/17 07:50 [place] % (Auto) 8.4 % (0.0-10.0) 06/06/17 07:50 Eos % (Auto) 0.9 % (0.0-4.0) 06/06/17 07:50 Baso % (Auto) 0.1 % (0.0-2.0) 06/06/17 07:50 Neut # 5.6 K/uL (1.8-7.0) 06/06/17 07:50 Lymph # 1.4 K/uL (1.0-4.3) 06/06/17 07:50 [place] # 0.6 K/uL (0.0-0.8) 06/06/17 07:50 Eos # 0.1 K/uL (0.0-0.7) 06/06/17 07:50 Baso # 0.0 K/uL (0.0-0.2) 06/06/17 07:50 pO2 56 mm/Hg (30-55) H 06/04/17 02:05 VBG pH 7.39 (7.32-7.43) 06/04/17 02:05 VBG pCO2 47 mmHg (40-60) 06/04/17 02:05 VBG HCO3 26.9 mmol/L 06/04/17 02:05 VBG Total CO2 29.9 mmol/L (22-28) H 06/04/17 02:05 VBG O2 Sat (Calc) 89.8 % (40-65) H 06/04/17 02:05 VBG Base Excess 2.8 mmol/L (0.0-2.0) H 06/04/17 02:05 VBG Potassium 3.8 mmol/L (3.6-5.2) 06/04/17 02:05 Sodium 142.0 mmol/l (132-148) 06/04/17 02:05 Chloride 111.0 mmol/L (98-107) H 06/04/17 02:05 Glucose 99 mg/dl (65-105) 06/04/17 02:05 Lactate 1.5 mmol/L (0.7-2.1) 06/04/17 02:05 Sodium 142 mmol/L (132-148) 06/06/17 07:50 Potassium 4.0 mmol/L (3.6-5.2) 06/06/17 07:50 Chloride 107 mmol/L (98-107) 06/06/17 07:50 Carbon Dioxide 30 mmol/L (22-30) 06/06/17 07:50 Anion Gap 10 (10-20) 06/06/17 07:50 BUN 21 mg/dL (7-17) H 06/06/17 07:50 Creatinine 0.8 mg/dL (0.7-1.2) 06/06/17 07:50 Est GFR ( Amer) > 60 06/06/17 07:50 Est GFR (Non-Af Amer) > 60 06/06/17 07:50 Random Glucose 96 mg/dL (65-105) 06/06/17 07:50 Calcium 8.4 mg/dl (8.6-10.4) L 06/06/17 07:50 Magnesium 1.9 mg/dL (1.6-2.3) 06/04/17 01:44 Total Bilirubin 0.9 mg/dL (0.2-1.3) 06/06/17 07:50 AST 33 U/L (14-36) 06/06/17 07:50 ALT 33 U/L (9-52) 06/06/17 07:50 Alkaline Phosphatase 109 U/L (38-126) 06/06/17 07:50 Total Protein 6.5 g/dL (6.3-8.3) 06/06/17 07:50 Albumin 3.7 g/dL (3.5-5.0) 06/06/17 07:50 Globulin 2.9 gm/dL (2.2-3.9) 06/06/17 07:50 Albumin/Globulin Ratio 1.3 (1.0-2.1) 06/06/17 07:50 Venous Blood Potassium 3.8 mmol/L (3.6-5.2) 06/04/17 02:05 Urine Color Yellow (YELLOW) 06/04/17 02:06 Urine Clarity Clear (Clear) 06/04/17 02:06 Urine pH 6.0 (5.0-8.0) 06/04/17 02:06 Ur Specific Mcgill 1.005 (1.003-1.030) 06/04/17 02:06 Urine Protein Negative mg/dL (NEGATIVE) 06/04/17 02:06 Urine Glucose (UA) Normal mg/dL (Normal) 06/04/17 02:06 Urine Ketones Negative mg/dL (NEGATIVE) 06/04/17 02:06 Urine Blood Negative (NEGATIVE) 06/04/17 02:06 Urine Nitrate Negative (NEGATIVE) 06/04/17 02:06 Urine Bilirubin Negative (NEGATIVE) 06/04/17 02:06 Urine Urobilinogen Normal mg/dL (0.2-1.0) 06/04/17 02:06 Ur Leukocyte Esterase Neg Keyshawn/uL (Negative) 06/04/17 02:06 Urine WBC (Auto) < 1 /hpf (0-5) 06/04/17 02:06 - Hospital Course Hospital Course: A/P 87 yr old female with hx of dementia , admitted from [place] for aggressive behavior Dr. Batres consulted for aggressive behaviour and recommends to transfer patient to [facility] psyche Anesthsia consulted fro epidural and recommends out patient f/u patient accepted and son in agreement and signed the paper for the patient medically stable for discharge to [facility] today Discharge Exam - Head Exam Head Exam: ATRAUMATIC, NORMAL INSPECTION, NORMOCEPHALIC - Eye Exam Eye Exam: Normal appearance - ENT Exam ENT Exam: Mucous Membranes Moist - Respiratory Exam Respiratory Exam: Clear to PA & Lateral, NORMAL BREATHING PATTERN - Cardiovascular Exam Cardiovascular Exam: REGULAR RHYTHM, +S1, +S2 - GI/Abdominal Exam GI & Abdominal Exam: Normal Bowel Sounds - Rectal Exam Rectal Exam: Deferred Discharge Plan - Follow Up Plan Condition: FAIR Disposition: OTHER INSTITUTION Instructions: Dementia (GEN), Altered Mental Status (GEN) Additional Instructions: take your medications as instructed by your doctor. Referrals: Jesus Thurston MD [Staff Provider] -
== END 2017-06-08 14:56 | disposition designated cancer center or children's hospital (05) | DRG 56 ==
LOC: C.ER 00:27 → C.9E 02:58 → C.5S 11:47
PROVIDERS: ADMIT Internal Medicine; ATTEND Internal Medicine
DX: G31.09 Other frontotemporal neurocognitive disorder (principal); G93.41 Metabolic encephalopathy; F02.81 Dementia in other diseases classified elsewhere, unspecified severity, with behavioral disturbance; I48.91 Unspecified atrial fibrillation; M54.9 Dorsalgia, unspecified; G89.29 Other chronic pain; E78.00 Pure hypercholesterolemia, unspecified; F32.9 Major depressive disorder, single episode, unspecified; F41.9 Anxiety disorder, unspecified; I10 Essential (primary) hypertension; K58.9 Irritable bowel syndrome, unspecified; D64.9 Anemia, unspecified; M06.9 Rheumatoid arthritis, unspecified; Z79.899 Other long term (current) drug therapy; Z86.010 Personal history of colon polyps; Z95.0 Presence of cardiac pacemaker

== ENCOUNTER 2017-11-27 06:29 | Day surgery (SDC) | payer MEDICARE, BC ==
[2017-06-08 17:18] VITALS: BMI 24.4
[2017-11-27] MEDS ORDERED: cefTRIAXone IV 1 gm in Dextros 50 ML IVPB ONE (09:03)
[2017-11-27] MEDS ORDERED: Propofol 10 mg/ml Inj (20 ML) ONE ×2 (09:16→09:19)
[2017-11-27] MEDS ORDERED: Phenylephrine 10 mg/ml Inj ONE (09:32)
[2017-11-27] MEDS ORDERED: ePHEDrine 50 mg/ml Inj ONE (09:32)
--- NOTE | 2017-11-27 10:05 | PCM.SURG1 ---
Surgeon's Initial Post Op Note - Surgeon's Notes Surgeon: Spencer Suggs Manager Integrity: none Type of Anesthesia: IV Sedation Pre-Operative Diagnosis: UTI, Frequency, Dysuria Operative Findings: cystitis. R renal caliceal duverticulum. Possible filling defect L renal collecting system Post-Operative Diagnosis: same Operation Performed: cystoscopy. Bilat rtg pyelogram. bladder bx and fulg. urethral dialtion. EUA Specimen/Specimens Removed: urine, bladder bx Estimated Blood Loss: EBL {In ML}: 0 Blood Products Given: N/A Drains Used: No Drains Post-Op Condition: Good Date of Surgery/Procedure: 11/27/17 Time of Surgery/Procedure: 09:50
[2017-11-27] MEDS ORDERED: HYDROmorphone 0.5 mg/0.5 ml ISec IVP PRN (10:12)
[2017-11-27] MEDS ORDERED: Lactated Ringer's 1,000 ML IV SCH (10:15)
[2017-11-27 11:14] VITALS: BP 190/68; PULSE 68; RESP 18; TEMP 97; O2SAT 96
--- NOTE | 2017-11-27 15:12 | RAD ---
HISTORY: CYSTITIS COMPARISON: No prior. FINDINGS: BOWEL: Normal. No obstruction. No free air. BONES: Lumbar degenerative disc disease. Surgical clips in right upper quadrant presumably status post prior cholecystectomy. OTHER FINDINGS: None. IMPRESSION: No active disease.
--- NOTE | 2017-11-27 15:58 | RAD ---
PROCEDURE: Intraoperative Fluoroscopy. HISTORY: CYSTITIS FINDINGS: Fluoroscopic assistance was provided for bilateral retrograde urography. Please refer to the operative report from ANABELL Dacosta. 20.9 seconds of fluoroscopy time was utilized with a total radiation DLP dose of [id number] mGym2.
--- NOTE | 2017-12-01 07:25 | OP ---
PROCEDURE DATE: 11/27/2017 PREOPERATIVE DIAGNOSIS: Urinary incontinence. POSTOPERATIVE DIAGNOSES: Urinary incontinence, overactive bladder, cystitis. Right renal caliceal diverticulum. Possible left renal collecting system filling defect. OPERATING SURGEON: Gabriela Suggs MD PROCEDURE: Cystoscopy. Bilateral retrograde ureteral pyelogram. Bladder biopsy and fulguration. Exam under anesthesia. Procedure was performed under fluoroscopic control as well as under video endoscopic control. DESCRIPTION OF PROCEDURE: Procedure as follows: The patient received perioperative antibiotic. The patient was placed in lithotomy position. Genitalia prepped and draped sterilely. Anesthesia was applied by the anesthesiologist. A 22-British cystoscope sheath was introduced with obturator. Urine was sent for bacteriologic examination. The residual within the bladder was approximately 30 mL. The urethra and bladder were inspected with 30-degree, and subsequently, with 70-degree lenses. FINDINGS: There was diffuse [id number] inflammation of bladder mucosa. There was an area of more focal inflammation. The ureteral orifices were in normal position and shape. There was no bladder diverticulum. There was no bladder stone. There was mild to moderate bladder trabeculation. The bladder contour was normal. Occlusive tip retrograde ureteral pyelogram was performed. Iodinated contrast dye was instilled via cone tip catheter into the right ureteral orifice. Urine and kidney were viewed sequentially. Iodinated contrast dye was instilled via cone tip catheter into left ureteral orifice. The ureters and the kidneys were viewed sequentially. The retrograde ureteral pyelogram demonstrated no evidence of obstruction within the ureters or collecting systems. There was a right-sided calyceal diverticulum involving the upper pole of the right kidney. There was a possible filling defect involving the left mid upper collecting system. Oblique views were obtained as well. Post drainage film was obtained and demonstrated good drainage from the collecting systems. The bladder was reinspected. The abnormal bladder mucosa was biopsied using cold cup biopsy forceps. Fulguration was performed with Ball electrode and electrocautery. The hemostasis was complete. The bladder was reinspected with 70-degree lens and confirmed the above findings. The bladder was then drained. Cystoscope sheath removed. Exam under anesthesia/bimanual examination was performed. There was no abnormal pelvic mass fixation or induration. The patient tolerated procedure without complication. Gabriela MD Es cc: [facility] # [id number]
== END 2017-11-27 12:08 | disposition home or self-care (01) ==
LOC: C.SDS 06:29
PROVIDERS: ATTEND Urology
DX: R35.0 Frequency of micturition (principal); R39.15 Urgency of urination; N30.90 Cystitis, unspecified without hematuria; N32.81 Overactive bladder
CPT/HCPCS: 52354; 74018; 87086; 88104; 88305; J0696